=== PATIENT | male | born 1985 | race Caucasian/White ===

== ENCOUNTER 2018-07-24 10:35 | Emergency (ER) | payer OTHER, SELFPAY ==
[~2018-07-24] VITALS: Ht 177.8 cm; Wt 75.0 kg
[2018-07-24 10:35] VITALS: BP 123/80
[2018-07-24] MEDS ORDERED: APAP325T4 PO (10:42)
[2018-07-24] MEDS ORDERED: IBUP-1425 PO (10:42)
[2018-07-24] MEDS ORDERED: CLEO300C2 PO (11:08)
[2018-07-24] MEDS ORDERED: IBUP80TA PO (11:08)
[2018-07-24] MEDS ORDERED: LIDVISCBTL TOP (11:08)
== END 2018-07-24 11:20 | disposition home or self-care (01) ==
LOC: M ED 10:35
DX: K08.89 Other specified disorders of teeth and supporting structures (principal); F33.9 Major depressive disorder, recurrent, unspecified; F41.9 Anxiety disorder, unspecified; F43.10 Post-traumatic stress disorder, unspecified; Z88.0 Allergy status to penicillin; F17.210 Nicotine dependence, cigarettes, uncomplicated

== ENCOUNTER 2018-08-09 12:10 | Emergency (ER) | payer SELFPAY ==
[~2018-08-09] VITALS: Ht 177.8 cm; Wt 96.0 kg
[~2018-08-09 12:10] MED LIST: APAP325T4 PO; CLEO300C2 PO; IBUP-1425 PO; IBUP80TA PO; LIDVISCBTL TOP
[2018-08-09 12:11] VITALS: BP 121/78
[2018-08-09] MEDS ORDERED: NS 1,000 ML IV ONE (12:45)
[2018-08-09] MEDS ORDERED: CLEO150C PO (12:56)
== END 2018-08-09 12:46 | disposition left against medical advice (07) ==
LOC: M ED 12:10
DX: K04.7 Periapical abscess without sinus (principal); K02.9 Dental caries, unspecified; Z53.21 Procedure and treatment not carried out due to patient leaving prior to being seen by health care provider; Z87.891 Personal history of nicotine dependence; Z88.0 Allergy status to penicillin

== ENCOUNTER 2020-02-01 11:54 | Emergency (ER) | payer MEDICAID, OTHER, SELFPAY ==
[~2020-02-01] VITALS: Ht 177.8 cm; Wt 72.3 kg
[~2020-02-01 11:54] MED LIST changes: +CLEO150C PO
[2020-02-01 11:55] VITALS: BP 133/77
[2020-02-01] MEDS ORDERED: CLEO300C2 PO (13:00)
[2020-02-01] MEDS ORDERED: CLEO150C PO (13:00)
== END 2020-02-01 13:12 | disposition home or self-care (01) ==
LOC: M ED 11:54
DX: K04.7 Periapical abscess without sinus (principal); F12.20 Cannabis dependence, uncomplicated; Z88.0 Allergy status to penicillin; Z79.899 Other long term (current) drug therapy

== ENCOUNTER 2020-08-05 21:47 | Emergency (ER) | payer OTHER ==
[~2020-08-05] VITALS: Ht 177.8 cm; Wt 70.2 kg
[2020-08-05 21:47] VITALS: BP 136/84
== END 2020-08-05 22:13 | disposition left against medical advice (07) ==
LOC: M ED 21:47
DX: Z53.21 Procedure and treatment not carried out due to patient leaving prior to being seen by health care provider (principal)

== ENCOUNTER 2021-05-21 16:03 | Emergency (ER) | payer OTHER ==
[~2021-05-21] VITALS: Ht 175.3 cm; Wt 72.7 kg
[2021-05-21 16:03] VITALS: BP 121/72
== END 2021-05-21 16:33 | disposition left against medical advice (07) ==
LOC: M ED 16:03
DX: Z53.29 Procedure and treatment not carried out because of patient's decision for other reasons (principal)

== ENCOUNTER 2021-07-28 08:43 | Emergency (ER) | payer OTHER ==
[~2021-07-28] VITALS: Ht 177.8 cm; Wt 72.8 kg
[2021-07-28 10:38] VITALS: BP 119/76
== END 2021-07-28 11:18 | disposition home or self-care (01) ==
LOC: M ED 08:43
DX: S60.511A Abrasion of right hand, initial encounter (principal); W22.8XXA Striking against or struck by other objects, initial encounter; Y92.018 Other place in single-family (private) house as the place of occurrence of the external cause; Z88.0 Allergy status to penicillin; F17.210 Nicotine dependence, cigarettes, uncomplicated

== ENCOUNTER 2023-03-30 19:34 | Emergency (ER) | payer OTHER ==
[~2023-03-30] VITALS: Ht 177.8 cm; Wt 73.6 kg
[2023-03-30] MEDS ORDERED: DIPH50CA PO (19:42)
[2023-03-30] MEDS ORDERED: IBUP200C88 PO (19:42)
[2023-03-30 21:00] VITALS: BP 114/75; TEMP 97.1; O2SAT 97
[2023-03-30] MEDS ORDERED: methylPREDNISolone 125MG 2ML VIAL IV ONE (22:00)
[2023-03-30] MEDS ORDERED: FAMOTIDINE 20MG/2ML VIAL IVP ONE (22:00)
[2023-03-30] MEDS ORDERED: predniSONE 20 MG TAB PO ONE (22:25)
[2023-03-30] MEDS ORDERED: FAMOTIDINE 20 MG TAB PO ONE (22:25)
== END 2023-03-31 00:23 | disposition home or self-care (01) ==
LOC: M ED 19:34
DX: L50.9 Urticaria, unspecified (principal); F17.290 Nicotine dependence, other tobacco product, uncomplicated; Z88.0 Allergy status to penicillin
CPT/HCPCS: 87880; 99284; J7512

== ENCOUNTER → 2024-01-10 | Outpatient (CLI) | payer OTHER, SELFPAY ==
[~2024-01-10] MED LIST changes: +DIPH50CA PO; +IBUP200C88 PO
== END ==
LOC: M SOG 10:44
PROVIDERS: ATTEND Physician Assistant
DX: M54.50 Low back pain, unspecified (principal)